=== PATIENT | male | born 1960 ===

== ENCOUNTER 2018-01-31 07:18 | Inpatient (IN) | payer BC ==
--- NOTE | 2018-01-18 15:19 | HP ---
AMENDED REPORT NOW INCLUDES COSIGNER DESIGNATION - ESIGNED BEFORE ADJUSTMENT HISTORY AND PHYSICAL: DATE OF ADMISSION/SURGERY: 01/31/18 SURGEON: Cate Kern MD * (DICTATED BY MANUEL ISABEL) PROCEDURE: Left total knee arthroplasty. CHIEF COMPLAINT: Left knee pain. HISTORY OF PRESENT ILLNESS: Mr. Keller is a 58-year-old gentleman with complaints of left knee pain. He has failed conservative management and elected to proceed with a left total knee arthroplasty which is scheduled for with Dr. Kern. PAST MEDICAL HISTORY: 1. High cholesterol. 2. Sleep apnea. PAST SURGICAL HISTORY: Cholecystectomy, appendectomy, and surgery for sleep apnea. CURRENT MEDICATIONS: 1. Simvastatin. 2. Cholestyramine. 3. Ibuprofen as needed. ALLERGIES: None. FAMILY HISTORY: Diabetes. SOCIAL HISTORY: He is a 58-year-old gentleman who lives with is . He smokes 2 cigars a month. He does not use drugs. He drinks 1 alcoholic beverage a day. REVIEW OF SYSTEMS: A complete 14-point review of systems was reviewed with the patient and was all negative. PHYSICAL EXAMINATION GENERAL: He is well developed, well nourished in no acute distress. VITAL SIGNS: He stands 5 feet 8 inches tall, weighs 230 pounds. His blood pressure is 130/76, his heart rate is 62. HEENT: Normocephalic and atraumatic. NECK: Supple. No palpable lymph nodes. PULMONARY: Lungs are clear to auscultation bilaterally. CARDIAC: Regular rate and rhythm. Strong S1 and S2. ABDOMEN: Soft, nontender, and nondistended. NEUROLOGIC: He is alert and oriented x3. Cranial nerves II through XII are intact. MUSCULOSKELETAL: Left lower extremity; the skin is intact. There is no open wounds or abrasions. He has some tenderness over the medial and lateral joint line and there is a moderate joint effusion. Range of motion is 5 to 110 degrees. He has 2+ dorsalis pedis pulses. Intact sensation. His lower extremity muscle group strengths are intact at 5/5. ASSESSMENT AND PLAN: Mr. Keller is a 58-year-old gentleman with complaints of left knee pain secondary to advanced osteoarthritis. He has failed conservative management and elected to proceed with a left total knee arthroplasty which is scheduled for 01/31/[address] Kern discussed the risks and benefits of the surgery at today's visit and all of his questions were answered. He will follow with Dr. Kern 2 weeks after the surgery. MANUEL ISABEL [id number]/[facility] #: [id number] BRIANA
[~2018-01-31 07:18] MED LIST: Buffered Lidocaine 0.9% SYRIN* 5 ML/SYR SYRINGE INTRADERM ONE
[2018-01-31] MEDS ORDERED: Buffered Lidocaine 0.9% SYRIN* 5 ML/SYR SYRINGE ONE (07:36)
[2018-01-31] MEDS ORDERED: ceFAZolin 2 GM PREMIX (*) 2 GM/50 ML BAG IVPB ONE (07:36)
[2018-01-31] MEDS ORDERED: Midazolam* 1 MG/ML 5 ML VIAL (5 MG) ONE (08:07)
[2018-01-31] MEDS ORDERED: fentaNYL* 50 MCG/ML 2 ML VIAL (100 MCG VIAL) ONE (08:07)
[2018-01-31] MEDS ORDERED: Midazolam* 1 MG/ML 2 ML VIAL (2 MG) ONE ×2 (09:51→10:15)
[2018-01-31] MEDS ORDERED: Morphine PF AMP (0.5MG/ML)* 5 MG/10 ML AMP ONE (09:52)
[2018-01-31] MEDS ORDERED: Ketorolac INJ* 30 MG/ML 1 ML VIAL ONE (10:14)
[2018-01-31] MEDS ORDERED: Dexamethasone IV* 4 MG/ML 1 ML (4 MG) ONE ×2 (10:14→10:38)
[2018-01-31] MEDS ORDERED: Dexmedetomidine* 200 MCG/2 ML 2 ML VIAL ONE (10:14)
[2018-01-31] MEDS ORDERED: diPHENhydraMINE IV* 50 MG/ML 1 ml VIAL (BENADRYL) ONE (10:14)
[2018-01-31] MEDS ORDERED: Famotidine IV* 10 MG/ML 2 ML (20 mg) ONE (10:14)
[2018-01-31] MEDS ORDERED: Bupivacaine 0.25% SDV* 30 ML ONE (10:31)
[2018-01-31] MEDS ORDERED: ROPIVACAINE 5 MG/ML 30 ML BTL (0.5%) ONE (10:31)
[2018-01-31] MEDS ORDERED: Bupivacaine-MPF SPINAL* 7.5 MG/2 ML AMP ONE (10:31)
[2018-01-31] MEDS ORDERED: DiMENhydriNATE IV* 50 MG/ML VIAL IV PUSH PRN (11:01)
[2018-01-31] MEDS ORDERED: Naloxone* 0.4 MG/ML 1 ML VIAL IV PRN ×2 (11:01→11:03)
[2018-01-31] MEDS ORDERED: PROCHLORPERAZINE INJ 5 MG/ML 2 ML VIAL IV PRN ×2 (11:01→11:03)
[2018-01-31] MEDS ORDERED: Scopolamine 1.5 mg* PATCH TRANSDERM PRN (11:03)
[2018-01-31] MEDS ORDERED: Nalbuphine* 20 MG/ML 1 ML VIAL IV PRN ×2 (11:03)
[2018-01-31] MEDS ORDERED: Ondansetron INJ* 2 MG/ML VIAL IV PRN (11:03)
[2018-01-31] MEDS ORDERED: HYDROcodone/ACETAMIN 5-325 MG* 1 TAB PO PRN ×2 (11:03)
[2018-01-31] MEDS ORDERED: Magnesium Hydroxide LIQ* 30 ML UDC PO PRN (11:11)
[2018-01-31] MEDS ORDERED: Polyethylene Glycol 3350* 17 GM PACKET PO PRN (11:11)
[2018-01-31] MEDS ORDERED: Cyclobenzaprine TAB* 10 MG PO PRN (11:11)
[2018-01-31] MEDS ORDERED: Bisacodyl SUPP* 10 MG SUPP PR PRN (11:11)
[2018-01-31] MEDS ORDERED: Bupivacaine 0.5%* 50 ML VIAL ONE (11:45)
[2018-01-31] MEDS ORDERED: ceFAZolin 1 GM in Dextrose (*) 1 GM/50 ML BAG IVPB SCH (12:00)
--- NOTE | 2018-01-31 14:14 | RAD ---
HISTORY: Status post left knee arthroplasty COMPARISONS: November 02, 2017 VIEWS: 2, Frontal and lateral views of the left knee FINDINGS: BONE DENSITY: Normal. BONES: The patient is status post left knee arthroplasty. There is no hardware failure or osteolysis. JOINTS: The patient is status post left knee arthroplasty. ALIGNMENT: There is no dislocation. SOFT TISSUES: There is post surgical change to the soft tissues OTHER FINDINGS: None. IMPRESSION: STATUS POST LEFT KNEE ARTHROPLASTY
[2018-01-31] MEDS: Acetaminophen TAB* 325 MG PO SCH ×4 (16:13→23:36)
[2018-01-31] MEDS: diPHENhydraMINE IV* 50 MG/ML 1 ml VIAL (BENADRYL) IV PRN ×2 (16:50→23:37)
[2018-01-31] MEDS ORDERED: Warfarin TAB(*) 6 MG PO ONE (17:00)
[2018-01-31] MEDS: ceFAZolin 1 GM in Dextrose (*) 1 GM/50 ML BAG IVPB SCH (17:50)
[2018-01-31] MEDS: Atorvastatin* 10 MG TAB PO SCH (17:50)
[2018-01-31] MEDS: Magnesium Hydroxide LIQ* 30 ML UDC PO SCH (20:50)
[2018-01-31] MEDS: Docusate CAP* 100 MG PO SCH (20:50)
--- NOTE | 2018-02-01 00:04 | OP ---
DATE OF OPERATION: 01/31/18 - ROOM #348 DATE OF : 62 ATTENDING SURGEON: Cate Kern MD PROMOTIONS SPECIALIST: MANUEL Duval. Mr. Butlre did help throughout the procedure with preparation of the leg, wound retraction, manipulation of the knee and wound closure. ANESTHESIOLOGIST: Dr. Contreras. ANESTHESIA TYPE: Spinal. PRE-OP DIAGNOSIS: Severe end-stage degenerative osteoarthritis of the left knee joint. POST-OP DIAGNOSIS: Severe end-stage degenerative osteoarthritis of the left knee joint. OPERATIVE PROCEDURE: Left total knee arthroplasty. TOURNIQUET TIME: 54 minutes. COMPLICATIONS: None. SPECIMENS: Bone and cartilage from the left knee joint sent to Pathology. HARDWARE USED: This is cemented [employer] total knee arthroplasty hardware. Two packages of simplex bone cement. For the femur, a size 7 left posterior stabilized Legion Oxinium femoral component. For the tibia, a size 6 left Marybeth II tibial base plate. For the insert, a 9 mm posterior stabilized articular insert, size 5/6. For the patella, a 35 mm 3-peg all poly patella. BRIEF HISTORY/INDICATIONS: Mr. Keller is a 58-year-old gentleman with years of increasingly severe left knee pain. The patient failed conservative treatment with anti-inflammatories, pain medication, intra-articular injection, and physical therapy. Due to continued pain and decreased quality of life, he elected to undergo a left total knee arthroplasty. Plain films and MRI confirmed advanced arthritis. Informed consent was obtained from the patient. He understood the risks of the surgery included, but were not limited to bleeding, infection, damage to nearby structures, continued pain, need for further surgery, intraoperative fracture, nerve palsy, hardware failure or loosening, knee stiffness, loss of motion, stroke, heart attack, blood clot, and . He wished to proceed. INTRAOPERATIVE FINDINGS: Intraoperatively, the patient was noted to have complete loss of cartilage in a tricompartmental fashion. DESCRIPTION OF PROCEDURE: Mr. Keller was identified in the preanesthesia unit. His left lower extremity was marked as the correct operative side. Informed consent was signed and placed in the chart. The patient was taken to the operating room and placed under spinal anesthesia. A Cano catheter was placed. Tourniquet was placed on the left thigh. Left lower extremity was prepped and draped in the usual sterile fashion. Preop time-out was made to correctly identify the patient's side and site. Appropriate perioperative antibiotics were given within 1 hour of incision. Tourniquet was inflated and total tourniquet time for this procedure was 54 minutes. A midline incision was made with a 10 blade and carried down to the extensor mechanism. New 10 blade was used to make a standard medial parapatellar arthrotomy. Patella was subluxed laterally. Electrocautery was used to subperiosteally elevate the soft tissue off the superomedial tibia to the mid sagittal plane. The knee was flexed up. Anterior horn of the lateral meniscus and ACL were sharply released. A drill was used to enter the distal femur. Intramedullary distal femoral cutting guide was pinned into position on the distal femur. The oscillating saw was used to make the appropriate distal femoral cut. Next, the external rotation guide was pinned on the distal femur and distal femur was sized to a size 7. Size 7 multi-cutting jig was pinned on the distal femur and the oscillating saw was used to make the appropriate 4 chamfer cuts. The PCL was completely released. The tibia was subluxed anteriorly. Extramedullary tibial cutting guide was pinned on the proximal tibia. Oscillating saw was used to make the proximal tibial cut perpendicular to the mechanical axis of the tibia. The bone was carefully removed. The knee was brought out into extension. A spacer block had excellent fit. There was good medial and lateral ligamentous balancing. Flexion and extension gaps were well balanced. The knee was flexed up. Lamina compensation programs manager was placed both medially and laterally. Any remaining meniscus was carefully removed using electrocautery. Curved osteotome was used to remove any posterior osteophytes. Tibial tray and drop janeth were placed and once again confirmed satisfactory tibial cut. A size 7 left femoral trial was impacted on to the distal femur. This had excellent fit. The box for the posterior stabilized implant was prepared using a reamer and box cut osteotome. Size 6 tibial tray trial with a 9-mm insert trial was placed and the knee was taken through a range of motion. The knee had full extension to 130 degrees of flexion. There was satisfactory patellofemoral tracking. The patella was everted. 9 mm of patellar bone and cartilage was carefully removed using an oscillating saw. The patella was sized to a size 35. Three peg holes were drilled through the size 35 guide. A 35 trial patella was placed and the knee was taken through a range of motion. There was satisfactory patellofemoral tracking. All trials were carefully removed. The tibia was subluxed anteriorly and sized to size 6. Proximal tibia was prepared using a size 6 keel punch. All bony cut surfaces were copiously irrigated with sterile saline and dried. Final implants were cemented into place starting with the tibia followed by the femur and last the patella. A 9-mm insert trial was placed and the knee was taken to full extension. Tourniquet was turned down at 54 minutes. The cement was allowed to fully cure. The knee was copiously irrigated with sterile saline. Electrocautery was used to obtain meticulous hemostasis. Any excess cement was removed from around the capsule and hardware. Final insert chosen was a 9-mm posterior stabilized articular insert Marybeth II size 5/6. This was locked into position on the tibial tray without difficulty. Stability of the insert was checked and rechecked and noted to be stable. The extensor mechanism was closed using interrupted #1 Vicryl over a medium Hemovac drain. The rest of the incision was closed in a layered fashion using 0 and 2-0 Vicryl. The skin was closed using running 3-0 nylon suture. Sterile Xeroform, 4x4's, and Webril were used to cover the incision. Bertram wrap and cold pack were placed over this. The patient's anesthesia was reversed without difficulty. He was taken to the PACU in stable condition. Intended weightbearing will be weightbearing as tolerated. Intended DVT prophylaxis will be Coumadin with a Lovenox bridge. [id number]/[facility] #: [id number] BRIANA
[2018-02-01] MEDS: ceFAZolin 1 GM in Dextrose (*) 1 GM/50 ML BAG IVPB SCH ×2 (01:50→10:14)
[2018-02-01] MEDS ORDERED: oxyCODONE/Acetamin 5/325 MG* TAB PO PRN (02:00)
[2018-02-01] MEDS ORDERED: Morphine INJ* 2 MG/ML 1 ML CARPUJECT IV PRN (02:00)
[2018-02-01] MEDS ORDERED: Ondansetron INJ* 2 MG/ML VIAL IV PRN (02:00)
[2018-02-01] MEDS ORDERED: Ondansetron TAB* 4 MG PO PRN (02:00)
[2018-02-01] MEDS: oxyCODONE/Acetamin 5/325 MG* TAB PO PRN ×2 (03:28→10:18)
[2018-02-01 06:42] LABS: Hematocrit 33 % (42-52); Hemoglobin 11.7 g/dl (14.0-18.0); Platelet Count 196 10^3/ul (150-450)
[2018-02-01 06:51] LABS: INR 1.02 (0.77-1.02)
[2018-02-01 06:59] LABS: EGFR Non-African American 68.3 (>60)
[2018-02-01] MEDS: Docusate CAP* 100 MG PO SCH ×2 (08:06→19:28)
[2018-02-01] MEDS: Magnesium Hydroxide LIQ* 30 ML UDC PO SCH ×2 (08:06→19:28)
[2018-02-01] MEDS: oxyCODONE TAB* 5 MG TAB PO PRN ×4 (08:07→22:50)
[2018-02-01] MEDS: diPHENhydraMINE IV* 50 MG/ML 1 ml VIAL (BENADRYL) IV PRN ×2 (10:14→16:46)
--- NOTE | 2018-02-01 11:30 | PN ---
Progress Note - Progress Note Date of Service: 02/01/18 SOAP: Subjective: 58 y/o male s/p L TKA by DR. Kern 01/31. VSS, afebrile overnight. Patient c/ o increased pain overnight. no NV, SOB, lightheaded. no questions re: surgery. at bedside. Objective: General- pain appearing, NAD, AO, resting in bed MSK- LLE- DF/PF = b/l, PT 2+, negative homans sign b/l, surgical dressing intact , no induration around dressing, sitlt. Vital Signs Temp 99.2 F 02/01/18 07:22 Pulse 74 02/01/18 07:22 Resp 18 02/01/18 12:26 BP 134/69 02/01/18 07:22 Pulse Ox 98 02/01/18 07:40 Intake & Output 01/31/18 02/01/18 02/01/18 18:59 06:59 18:59 Intake Total 1650 3146 1005 Output Total 850 3000 Balance 769 460 7674 Weight 104.326 kg Intake: IV Fluids 1650 993 603 LR 993 603 NS 100ML, Cefazolin 2G 50 lr 1600 IVPB 53 52 ABX - CEFAZOLIN 53 52 Oral 2100 350 Output: Cano 600 3000 Estimated Blood Loss 250 Other: # Bowel Movements 0 Assessment: Stable 58 y/o male s/p L TKA by DR. Kern 01/31. Plan: - DVT prophylaxis- lovenox, coumadin 6mg tonight. - Continue PT/ OT - Follow up with Dr. Kern within 10-14 days post-op - H&H - stable - post-op IV ABX - running - Pain- not controlled, MSER 30mg added, decreased short acting to q4, continue to monitor Acetaminophen (Tylenol Tab*) 650 mg PO Q4H PRN PRN Reason: PAIN OR TEMPERATURE Atorvastatin Calcium (Lipitor*) 10 mg PO QPM KIM Last Admin: 01/31/18 17:50 Dose: 10 mg Bisacodyl (Dulcolax Supp*) 10 mg RI DAILY PRN PRN Reason: constipation Cyclobenzaprine HCl (Flexeril Tab*) 10 mg PO TID PRN PRN Reason: SPASMS Diphenhydramine HCl (Benadryl Iv*) 12.5 mg IV Q6H PRN PRN Reason: PRURITIS Last Admin: 02/01/18 10:14 Dose: 12.5 mg Docusate Sodium (Colace Cap*) 100 mg PO BID [facility] Last Admin: 02/01/18 08:06 Dose: 100 mg Enoxaparin Sodium (Lovenox(*)) 40 mg SUBCUT Q24H [facility] Last Admin: 02/01/18 12:27 Dose: 40 mg Lactated Ringer's (Lactated Ringers 1000 Ml Bag*) 1,000 mls @ 100 mls/hr IV PER RATE [facility] Last Admin: 02/01/18 01:52 Dose: 100 mls/hr Lactulose (Lactulose*) 30 ml PO Q6H PRN PRN Reason: constipation Magnesium Hydroxide (Milk Of Magnesia Liq*) 30 ml PO BID [facility] Last Admin: 02/01/18 08:06 Dose: 30 ml Magnesium Hydroxide (Milk Of Magnesia Liq*) 30 ml PO Q6H PRN PRN Reason: constipation Morphine Sulfate (Morphine Vial*) 2 mg IV Q2H PRN PRN Reason: PAIN Last Admin: 02/01/18 12:44 Dose: 2 mg Morphine Sulfate (Ms Contin(*)) 30 mg PO Q12H [facility] Ondansetron HCl (Zofran Inj*) 4 mg IV Q6H PRN PRN Reason: nausea Ondansetron HCl (Zofran Tab*) 4 mg PO Q6H PRN PRN Reason: NAUSEA Oxycodone HCl (Roxycodone Tab*) 10 mg PO Q4H PRN PRN Reason: SEVERE PAIN Last Admin: 02/01/18 12:26 Dose: 10 mg Oxycodone/Acetaminophen (Percocet 5/325 Tab*) 1 tab PO Q4H PRN PRN Reason: PAIN Pharmacy Profile Note (Scopolamine Patch Remove*) 1 note PATCH OFF .AFTER 72 HOURS PRN PRN Reason: nausea Pharmacy Profile Note (Coumadin Daily Reminder*) 1 note FOLLOW UP 1700 [facility] Last Admin: 01/31/18 16:55 Dose: 1 note Polyethylene Glycol/Electrolytes (Miralax*) 17 gm PO DAILY PRN PRN Reason: Constipation Scopolamine (Transderm-Scop 1.5 Mg Patch*) 1 patch TRANSDERM Q72H PRN PRN Reason: nausea Warfarin Sodium (Coumadin Tab(*)) 6 mg PO ONCE@1700 ONE PRN Reason: Protocol Stop: 02/01/18 17:01
[2018-02-01] MEDS: Enoxaparin(*) 40 MG/0.4 ML SYR SUBCUT SCH (12:27)
[2018-02-01] MEDS: Morphine VIAL* 4 MG/ML VIAL (1 ml vial) IV PRN ×2 (12:44→18:38)
[2018-02-01] MEDS ORDERED: Morphine TAB Extended Release (*) 30 MG TAB.ER PO SCH (13:00)
[2018-02-01] MEDS: Morphine TAB Extended Release (*) 30 MG TAB.ER PO SCH (16:10)
[2018-02-01] MEDS ORDERED: Warfarin TAB(*) 6 MG PO ONE (17:00)
[2018-02-01] MEDS: Atorvastatin* 10 MG TAB PO SCH (18:32)
[2018-02-01] MEDS ORDERED: Ketorolac INJ* 30 MG/ML 1 ML VIAL IV PRN (19:00)
[2018-02-01] MEDS ORDERED: Ketorolac INJ* 30 MG/ML 1 ML VIAL ONE (19:17)
[2018-02-02] MEDS: oxyCODONE TAB* 5 MG TAB PO PRN ×3 (03:00→12:18)
[2018-02-02] MEDS: Morphine TAB Extended Release (*) 30 MG TAB.ER PO SCH (04:11)
[2018-02-02 06:18] LABS: Hematocrit 33 % (42-52); Hemoglobin 11.7 g/dl (14.0-18.0); Mean Platelet Volume 7.5 um3 (7.4-10.4); Platelet Count 174 10^3/ul (150-450)
[2018-02-02 06:30] LABS: INR 1.25 (0.77-1.02)
[2018-02-02] MEDS: Acetaminophen TAB* 325 MG PO PRN ×2 (08:06→12:18)
[2018-02-02] MEDS: Magnesium Hydroxide LIQ* 30 ML UDC PO SCH (08:06)
[2018-02-02] MEDS: Docusate CAP* 100 MG PO SCH (08:06)
--- NOTE | 2018-02-02 09:18 | PN ---
Progress Note - Progress Note Date of Service: 02/02/18 SOAP: Subjective: Pt. is alert, pain controlled. He wants to go home today. Objective: LLE - dressing changed, mod effusion. inc c/d/i. distally nvi. Vital Signs: Temp Pulse Resp BP Pulse Ox 99.5 F 97 18 145/75 96 02/02/18 07:24 02/02/18 08:11 02/02/18 08:06 02/02/18 08:11 02/02/18 07:24 Laboratory Results - last 24 hr 02/02/18 02/02/18 05:58 05:58 Hgb 11.7 L Hct 33 L Plt Count 174 MPV 7.5 INR (Anticoag Therapy) 1.25 H Assessment: 58 yo M pod 2 s/p LTKA Plan: wbat lle pt/ot d/c home today with vns ecasa 325 po bid to go home, d/c coumadin home with percocet, er morphine, and ibuprofen
[2018-02-02] MEDS: Enoxaparin(*) 40 MG/0.4 ML SYR SUBCUT SCH (12:19)
[2018-02-02 12:21] VITALS: BP 143/68
--- NOTE | 2018-02-02 20:37 | DS ---
AMENDED REPORT NOW INCLUDES COSIGNER DESIGNATION - ESIGNED BEFORE ADJUSTMENT DISCHARGE SUMMARY: DATE OF ADMISSION: 01/31/18 DATE OF DISCHARGE: 02/02/18 PROVIDER: Cate Kern MD ADMITTING PHYSICIAN: Dr. Kern.* (DICTATED BY MANUEL PATE) ADMITTING DIAGNOSIS: Left knee osteoarthritis. DISCHARGE DIAGNOSIS: Status post left total knee arthroplasty. PROCEDURE: Left total knee arthroplasty. CONSULTANTS: Physical Therapy and Occupational Therapy. BRIEF HISTORY: Mr. Keller is a 58-year-old male with severe degenerative arthritis of his left knee. He failed conservative treatment measures and elected to undergo a left total knee arthroplasty on 01/31/[address] Kern. HOSPITAL COURSE: Mr. Keller was admitted to [facility] on 01/31/18. He underwent an uncomplicated left total knee arthroplasty. Postoperatively, he recovered on the short-stay surgical unit. His Cano catheter was removed on postoperative day 1 and he was able to urinate on his own. Postoperative day 2, he had a bowel movement. He advanced to a regular diet without difficulty. His pain was well controlled with p.o. medications including Percocet and morphine. He was restarted on home medications. His vital signs and labs remained stable. He was able to bear weight as tolerated on the left lower extremity. He advanced appropriately with physical therapy and occupational therapy. His DVT prophylaxis was bridged with Lovenox and Coumadin. By postoperative day #2, he was orthopedically and medically stable for discharge home with services. PHYSICAL EXAMINATION: General: On examination, the patient is noted to be calm and cooperative, in no acute distress. He is alert and oriented x3. Vital Signs: On day of discharge, temperature 99.5 degrees Fahrenheit, pulse rate 97, respiration rate 18, O2 saturation 96% on room air, blood pressure 145/ 75. Extremities: Examination of the left lower extremity demonstrates a dressing overlying the left knee, which is clean, dry, and intact. His calf is soft and nontender. Distally, he has +2 palpable DP pulse, 5/5 ankle dorsiflexion, plantar flexion and strength. Sensation is intact to light touch. LABORATORY DATA ON DAY OF DISCHARGE: Hemoglobin was 11.7, hematocrit 33. INR 1.25. RADIOGRAPHS: Postoperative radiographs of the left knee demonstrate a left total knee arthroplasty with satisfactory prothesis placed in and no acute bony abnormalities. DISCHARGE MEDICATIONS: 1. Simvastatin. 2. Cholestyramine. 3. Percocet 5/325 one to two tabs q.4 to 6 hours p.r.n. pain. 4. MS Contin 15 mg p.o. q.12 hours p.r.n. pain. 5. Aspirin 325 mg b.i.d. 6. Colace 100 mg p.o. t.i.d. p.r.n. constipation. CONDITION ON DISCHARGE: Stable. DISCHARGE INSTRUCTIONS: Mr. Keller is a 58-year-old male, postoperative day #2 status post left total knee arthroplasty, which was uncomplicated. He is orthopedically and medically stable. He will be discharged home with services. He has stable vital signs and labs. He has restarted his home medications. He will take aspirin 325 mg b.i.d. for DVT prophylaxis. He will remain weightbearing as tolerated on the left lower extremity and have home physical therapy twice a day. He will take Percocet and MS Contin for pain control. He will take Colace up to 3 times a day for constipation. Followup will be with Dr. Kern in approximately 14 days for incision check and suture removal. He was instructed to call Dr. Kern or go immediately to the ER should he develop any new fevers, chills, incision pain, redness or drainage. He was instructed to go immediately to the ER should he develop chest pain or shortness of breath. MANUEL PATE [id number]/[facility] #: [id number] [facility]ITAL[facility]isha
[2018-02-03] MEDS ORDERED: Scopolamine PATCH Remove* 1 NOTE MISC PATCH OFF PRN (11:05)
== END 2018-02-02 13:25 | disposition home health service (06) | DRG 302 ==
LOC: AA 07:18 → SSU 15:40
PROVIDERS: ADMIT Orthopaedic Surgery Adult Reconstructive Orthopaedic Surgery; ATTEND Orthopaedic Surgery Adult Reconstructive Orthopaedic Surgery
PROC: 0SRD069 Replacement of Left Knee Joint with Oxidized Zirconium on Polyethylene Synthetic Substitute, Cemented, Open Approach (ICD-10-PCS; principal; 2018-01-31 10:00)
DX: M17.12 Unilateral primary osteoarthritis, left knee (principal); E78.00 Pure hypercholesterolemia, unspecified; E66.9 Obesity, unspecified; G47.33 Obstructive sleep apnea (adult) (pediatric); L29.9 Pruritus, unspecified; H91.90 Unspecified hearing loss, unspecified ear; R03.0 Elevated blood-pressure reading, without diagnosis of hypertension; E78.2 Mixed hyperlipidemia; M25.462 Effusion, left knee; F17.290 Nicotine dependence, other tobacco product, uncomplicated; J30.9 Allergic rhinitis, unspecified; M25.762 Osteophyte, left knee; Z79.82 Long term (current) use of aspirin; Z83.3 Family history of diabetes mellitus; Z72.0 Tobacco use; Z72.89 Other problems related to lifestyle; Z68.36 Body mass index [BMI] 36.0-36.9, adult; Z90.49 Acquired absence of other specified parts of digestive tract; Z83.49 Family history of other endocrine, nutritional and metabolic diseases; Z89.029 Acquired absence of unspecified finger(s); Z82.0 Family history of epilepsy and other diseases of the nervous system; Z82.49 Family history of ischemic heart disease and other diseases of the circulatory system
CPT/HCPCS: 36415; 80048; 85014; 85018; 85049; 85610; A9270-GY; C1776; J0690; J1100; J1200; J1650; J1885; J2250; J2270; J2795; J3010